=== PATIENT | female | born 1950 | race Caucasian/White ===

== ENCOUNTER 2020-08-05 22:13 | Outpatient (CLI) | payer MEDICARE | END 2020-08-05 22:14 | disposition critical access hospital (66) | LOC: EMS 22:13 | PROVIDERS: ATTEND Surgery | DX: R55 Syncope and collapse (principal); R42 Dizziness and giddiness | CPT/HCPCS: A0425; A0427 ==

== ENCOUNTER 2020-08-05 22:27 | Emergency (ER) | payer MEDICARE ==
--- NOTE | 2020-08-05 22:43 | ED Physician Documentation ---
History of Present Illness - Stated complaint Stated Complaint: SYNCOPE - Chief complaint Chief Complaint: Neuro - History obtained from History obtained from: Patient - Additonal information Additional information: The patient is a 70-year-old female who presents with an episode of lightheadedness and near syncope after she had been drinking alcohol and smoking marijuana tonight And thinks that she is dehydrated. she denies any other complaints. She reports she is otherwise healthy and up-to-date on all of her shots and denies chest pain headaches or fevers Review of Systems Constitutional: reports: Reviewed and negative Eyes: reports: Reviewed and negative Ears: reports: Reviewed and negative Nose: reports: Reviewed and negative Throat: reports: Reviewed and negative Cardiac: reports: Reviewed and negative Respiratory: reports: Reviewed and negative GI: reports: Reviewed and negative : reports: Reviewed and negative Skin: reports: Reviewed and negative Musculoskeletal: reports: Reviewed and negative Neurologic: reports: Generalized weakness Psychiatric: reports: Reviewed and negative Endocrine: reports: Reviewed and negative Immunocompromised: reports: Reviewed and negative PD ED PE NORMAL - Vitals Vital signs reviewed: Yes - General General: Alert and oriented X 3, No acute distress - HEENT HEENT: Atraumatic, PERRL, Ears normal, Moist mucous membranes, Pharynx benign, Dentition benign - Neck Neck: Supple, no meningeal sign, No adenopathy, Thyroid normal, No JVD - Cardiac Cardiac: RRR, No murmur, No gallop, No rub, Strong equal pulses - Respiratory Respiratory: No respiratory distress, Clear bilaterally - Abdomen Abdomen: Normal bowel sounds, Soft, Non tender, Non distended, No organomegaly - Female Female : Deferred - Rectal Rectal: Deferred - Back Back: No CVA TTP, No spinal TTP - Derm Derm: Normal color, Warm and dry, No rash - Extremities Extremities: No deformity, No tenderness to palpate, Normal ROM s pain, No edema, No calf tenderness / cord - Neuro Neuro: Alert and oriented X 3, depot manager 2-12 intact, No motor deficit, No sensory deficit, Normal speech - Psych Psych: Normal mood, Normal affect Results - Vitals Vitals: Vital Signs - 24 hr 08/05/20 08/05/20 22:31 23:10 Temperature 36.1 C L Heart Rate 71 64 Respiratory 17 12 Rate Blood Pressure 129/74 110/63 O2 Saturation 100 98 Oxygen O2 Source Room air - Labs Labs: Laboratory Tests 08/05/20 08/05/20 08/05/20 23:30 23:30 23:30 WBC 13.8 H RBC 3.81 L Hgb 12.5 Hct 37.6 MCV 98.7 MCH 32.8 H MCHC 33.2 RDW 13.0 Plt Count 233 MPV 11.2 H Neut # (Auto) 9.9 H Lymph # (Auto) 2.3 [place] # (Auto) 1.0 Eos # (Auto) 0.4 Baso # (Auto) 0.1 Absolute Nucleated RBC 0.00 Nucleated RBC % 0.0 Sodium 134 L Potassium 3.9 Chloride 100 L Carbon Dioxide 23 Anion Gap 11.0 BUN 19 Creatinine 0.8 Estimated GFR (MDRD) 71 L Glucose 110 H Calcium 8.8 Total Bilirubin 0.7 AST 27 ALT 17 Alkaline Phosphatase 67 Troponin I High Sens 5.5 Total Protein 6.6 L Albumin 3.9 Globulin 2.7 Albumin/Globulin Ratio 1.4 Lipase 27 Ethyl Alcohol 51.1 PD MEDICAL DECISION MAKING - ED course Complexity details: reviewed results, re-evaluated patient (Patient was given 1 L of IV fluids she feels much better now and would like to be discharged home.), d/w patient, d/w family ED course: Otherwise healthy 70-year-old female presents with near syncopal episode after drinking alcohol and smoking marijuana I did recommend testing to rule out any spontaneous intracranial hemorrhage or signs of stroke or [place] the patient and her family are refusing any additional testing she is now sober she has medical decision-making capability capacity and would like to be discharged home she is assumes any and all risks to include any possible adverse outcome such as stroke or cardiac or respiratory arrest. Departure - Departure Disposition: 01 Home, Self Care Clinical Impression: Dehydration Alcohol intoxication Qualifiers: Complication of substance-induced condition: with unspecified complication Qualified Code(s): F10.929 - Alcohol use, unspecified with intoxication, unspecified Marijuana intoxication Qualifiers: Complication of substance-induced condition: with unspecified complication Qualified Code(s): F12.929 - Cannabis use, unspecified with intoxication, unspecified Condition: Stable Instructions: ED Dehydration Follow-Up: Vilma Townsend MD [Primary Care Provider] - Tomorrow Comments: hydrate well, return to the emergency department with any concerns. Discharge Date/Time: 08/06/20 00:14
[2020-08-05 23:11] VITALS: BP 110/63
[2020-08-05] MEDS ORDERED: SODIUM CHLORIDE 0.9% 1,000 ML IV STA (23:18)
[2020-08-05 23:45] LABS: BASOPHILS # (AUTO) 0.1 10^3/uL (0.0-0.1); BASOPHILS % (AUTO) 0.7 %; EOSINOPHILS # (AUTO) 0.4 10^3/uL (0.0-0.7); EOSINOPHILS % (AUTO) 2.7 %; HGB - HEMOGLOBIN 12.5 g/dL (12.0-16.0); LYMPHOCYTES # (AUTO) 2.3 10^3/uL (1.5-3.5); LYMPHOCYTES % (AUTO) 16.8 %; MEAN CORPUSCULAR HEMOGLOBIN 32.8 pg (27.0-31.0); MEAN CORPUSCULAR HGB CONC 33.2 g/dL (32.0-36.0); MEAN CORPUSCULAR VOLUME 98.7 fL (81.0-99.0); MEAN PLATELET VOLUME 11.2 fL (7.9-10.8); MONOCYTES % (AUTO) 7.1 %; NEUTROPHILS # (AUTO) 9.9 10^3/uL (1.5-6.6); NEUTROPHILS % (AUTO) 72.1 %; PLT - PLATELET COUNT 233 10^3/uL (130-450); RED BLOOD COUNT 3.81 10^6/uL (4.20-5.40); WHITE BLOOD COUNT 13.8 x10^3/uL (4.8-10.8)
[2020-08-05 23:57] LABS: ALBUMIN 3.9 g/dL (3.2-5.5); ALBUMIN/GLOBULIN RATIO 1.4 (1.0-2.2); BILIRUBIN,TOTAL 0.7 mg/dL (0.2-1.0); CALCIUM 8.8 mg/dL (8.5-10.3); CREATININE 0.8 mg/dL (0.4-1.0); TOTAL PROTEIN 6.6 g/dL (6.7-8.2)
== END 2020-08-06 00:14 | disposition home or self-care (01) ==
LOC: ED 22:27
DX: E86.0 Dehydration (principal); F10.929 Alcohol use, unspecified with intoxication, unspecified; I45.10 Unspecified right bundle-branch block
CPT/HCPCS: 36415; 80053; 80320; 83690; 84484; 85025; 99283; 99284